=== PATIENT | female | born 1985 | race Two or more races ===

== ENCOUNTER 2023-05-24 08:49 | Outpatient (CLI) | payer OTHER | END 2023-05-24 08:53 | disposition home or self-care (01) | LOC: PRENATAL 08:49 | PROVIDERS: ATTEND Obstetrics & Gynecology Maternal & Fetal Medicine | DX: O35.3XX0 Maternal care for (suspected) damage to fetus from viral disease in mother, not applicable or unspecified (principal); O44.00 Complete placenta previa NOS or without hemorrhage, unspecified trimester; O34.219 Maternal care for unspecified type scar from previous cesarean delivery; O09.529 Supervision of elderly multigravida, unspecified trimester; Z3A.20 20 weeks gestation of pregnancy ==

== ENCOUNTER 2023-08-16 08:49 | Outpatient (CLI) | payer OTHER | END 2023-08-16 08:50 | disposition home or self-care (01) | LOC: PRENATAL 08:49 | PROVIDERS: ATTEND Obstetrics & Gynecology Maternal & Fetal Medicine | DX: O26.849 Uterine size-date discrepancy, unspecified trimester (principal); O36.8199 Decreased fetal movements, unspecified trimester, other fetus; O34.219 Maternal care for unspecified type scar from previous cesarean delivery; O09.529 Supervision of elderly multigravida, unspecified trimester; O09.219 Supervision of pregnancy with history of pre-term labor, unspecified trimester; O99.019 Anemia complicating pregnancy, unspecified trimester; Z3A.32 32 weeks gestation of pregnancy ==

== ENCOUNTER → 2023-09-13 09:13 | Outpatient (CLI) | payer OTHER | END | disposition home or self-care (01) | LOC: PRENATAL 09:13 | PROVIDERS: ATTEND Obstetrics & Gynecology Maternal & Fetal Medicine | DX: O26.849 Uterine size-date discrepancy, unspecified trimester (principal); O36.8199 Decreased fetal movements, unspecified trimester, other fetus; O34.219 Maternal care for unspecified type scar from previous cesarean delivery; O09.529 Supervision of elderly multigravida, unspecified trimester; O09.219 Supervision of pregnancy with history of pre-term labor, unspecified trimester; O99.019 Anemia complicating pregnancy, unspecified trimester; Z3A.36 36 weeks gestation of pregnancy ==